=== PATIENT | male | born 1965 | race Caucasian/White ===

== ENCOUNTER 2017-07-22 00:29 | Emergency (ER) | payer SELFPAY ==
[2017-07-22 00:34] VITALS: PULSE 77; RESP 18
--- NOTE | 2017-07-22 00:48 | CPEKG ---
Heart Rate: 70 RR Interval: 857 P-R Interval: 212 QRSD Interval: 108 QT Interval: 400 QTC Interval: 432 P [place]: 36 QRS [place]: 8 T Wave [place]: 37 EKG Severity - ABNORMAL ECG - EKG Impression: SINUS RHYTHM EKG Impression: FIRST DEGREE AV BLOCK Electronically Signed By: Humera Singh 22-Jul-2017 06:30:30
[2017-07-22] MEDS ORDERED: ONDANSETRON 4 MG/2 ML VIAL IVP ONE (00:56)
[2017-07-22] MEDS ORDERED: NS 1,000 ML IV ONE (01:11)
[2017-07-22] MEDS ORDERED: KETOROLAC 30 MG/1 ML SDV IVP ONE (01:11)
[2017-07-22 01:28] LABS: % IMMATURE GRANULYOCYTES 0.2 % (0.0-1.1); ABSOLUTE IMMATURE GRANULOCYTES 0.02 10^3/uL (0.00-0.10); ADD DIFF? NO; ADD MORPH? NO; ADD SCAN? NO; ATYPICAL LYMPHOCYTE FLAG 0 (0-99); FRAGMENT RBC FLAG 0 (0-99); HEMATOCRIT 39.4 % (40.0-51.0); HEMOGLOBIN 13.2 g/dL (13.7-17.5); LEFT SHIFT FLG 0 (0-99); LIPEMIA HEMOLYSIS FLAG 80 (0-99); MEAN CELL HEMOGLOBIN 30.3 pg (27.9-34.1); MEAN CELL HEMOGLOBIN CONCENTR. 33.5 g/dL (32.4-36.7); MEAN CELL VOLUME 90.4 fL (81.5-99.8); MEAN PLATELET VOLUME 9.7 fL (8.7-11.7); PLATELET CLUMPS FLAG 0 (0-99); PLATELET COUNT 286 10^3/uL (150-400); RED BLOOD CELL COUNT 4.36 10^6/uL (4.40-6.38); RED CELL DISTRIBUTION WIDTH 13.3 % (11.5-15.2)
--- NOTE | 2017-07-22 02:37 | EDPHY ---
H & P Stated Complaint: LIGHTHEADNESS, DYSPNEA , CONFUSION Time Seen by Provider: 07/22/17 01:03 HPI/ROS: HPI The patient presents with headache, nausea, generalized malaise which have been present for the last 1 day. 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 As he noticed today when he arrived to [place] from [place] that he had mild nausea, headache which is throbbing and diffuse, feels fatigued and very slightly disoriented. He denies any head trauma. He wonders if he has altitude sickness. He denies any sick contacts. He does not have any changes in his vision. He has a history of headaches and this feels similar.. He says he has been able to drink fluids but not as much as he would like. REVIEW OF SYSTEMS Constitutional: No fever, no chills. Eyes: No discharge. ENT: No sore throat. Cardiovascular: No chest pain, no palpitations. Respiratory: No cough, no shortness of breath. Gastrointestinal: No abdominal pain, no vomiting. Genitourinary: No hematuria. Musculoskeletal: No back pain. Skin: No rashes. Neurological: Positive for headache. PMHx: Atrial fibrillation on diltiazem Soc Hx: Denies any alcohol or drug use PHYSICAL General Appearance: Alert, no distress Eyes: Pupils equal and round no pallor or injection ENT, Mouth: Mucous membranes dry Respiratory: There are no retractions, lungs are clear to auscultation Cardiovascular: Regular rate and rhythm Gastrointestinal: Abdomen is soft and non-tender, no masses, bowel sounds normal Neurological: A&O, moves all extremities Skin: Warm and dry, no rashes Musculoskeletal: Neck is supple non tender Extremities: symmetrical, full range of motion Psychiatric: Patient is oriented X 3, there is no agitation Source: Patient Exam Limitations: No limitations - Personal History Current Tetanus/Diphtheria Vaccine: Yes - Medical/Surgical History Hx Asthma: No Hx Chronic Respiratory Disease: No Hx Diabetes: No Hx Cardiac Disease: Yes Hx Renal Disease: No Hx Cirrhosis: No Hx Alcoholism: No Hx HIV/AIDS: No Hx Splenectomy or Spleen Trauma: No Other PMH: AFIB,. CHRONS DISEASE - Social History Smoking Status: Former smoker Constitutional: Initial Vital Signs Temperature (C) 36.9 C 07/22/17 00:31 Heart Rate 77 07/22/17 00:31 Respiratory Rate 18 07/22/17 00:31 Blood Pressure 148/91 H 07/22/17 00:31 O2 Sat (%) 95 07/22/17 00:31 O2 Delivery Mode Room Air Allergies/Adverse Reactions: No Known Allergies Allergy (Unverified 07/22/17 00:34) Home Medications: Medication Instructions Recorded Diltiazem 120 mg BID 07/22/17 Medical Decision Making - Diagnostics EKG Interpretation: EKG: Complete interpretation has been separately recorded in the [email or web address] archive. Summary impression: Normal sinus rhythm Differential Diagnosis: This is a 51-year-old healthy male with history of atrial fibrillation on diltiazem who presents with headache, nausea, generalized fatigue. On exam, he has no neurologic deficits and is generally well-appearing. His mucous membranes are dry. I suspect he could be dehydrated or have mild altitude sickness contributing to his symptoms. Differential diagnosis includes dehydration, electrolyte disturbance, altitude sickness, migraine headache, tension type headache. In the emergency department, patient received IV fluids. He felt much better. Labs were checked and did reveal mild hyponatremia which could be related to dehydration I suspect if he does not appear to be volume overloaded. He will be discharged home with instructions for ibuprofen as needed and plenty of fluids. I will give him Zofran as well for his nausea. - Data Points Laboratory Results: Laboratory Results 07/22/17 00:50 07/22/17 07/22/17 00:50 00:50 WBC 9.69 10^3/uL H 10^3/uL (3.80-9.50) RBC 4.36 10^6/uL L 10^6/uL (4.40-6.38) Hgb 13.2 g/dL L g/dL (13.7-17.5) Hct 39.4 % L % (40.0-51.0) MCV 90.4 fL fL (81.5-99.8) MCH 30.3 pg pg (27.9-34.1) MCHC 33.5 g/dL g/dL (32.4-36.7) RDW 13.3 % % (11.5-15.2) Plt Count 286 10^3/uL 10^3/uL (150-400) MPV 9.7 fL fL (8.7-11.7) Neut % (Auto) 74.2 % % (39.3-74.2) Lymph % (Auto) 17.8 % % (15.0-45.0) [place] % (Auto) 5.2 % % (4.5-13.0) Eos % (Auto) 1.4 % % (0.6-7.6) Baso % (Auto) 1.2 % % (0.3-1.7) Nucleat RBC Rel Count 0.0 % % (0.0-0.2) Absolute Neuts (auto) 7.19 10^3/uL H 10^3/uL (1.70-6.50) Absolute Lymphs (auto) 1.72 10^3/uL 10^3/uL (1.00-3.00) Absolute Monos (auto) 0.50 10^3/uL 10^3/uL (0.30-0.80) Absolute Eos (auto) 0.14 10^3/uL 10^3/uL (0.03-0.40) Absolute Basos (auto) 0.12 10^3/uL H 10^3/uL (0.02-0.10) Absolute Nucleated RBC 0.00 10^3/uL 10^3/uL (0-0.01) Immature Gran % 0.2 % % (0.0-1.1) Immature Gran # 0.02 10^3/uL 10^3/uL (0.00-0.10) Sodium Pending Potassium Pending Chloride Pending Carbon Dioxide Pending Anion Gap Pending BUN Pending Creatinine Pending Estimated GFR Pending Glucose Pending Calcium Pending Medications Given: Discontinued Medications Sodium Chloride (Ns) 1,000 mls @ 0 mls/hr IV EDNOW ONE; Wide Open PRN Reason: Protocol Stop: 07/22/17 01:12 Last Admin: 07/22/17 02:18 Dose: 1,000 mls Ketorolac Tromethamine (Toradol) 15 mg IVP EDNOW ONE Stop: 07/22/17 01:12 Last Admin: 07/22/17 02:38 Dose: 15 mg Ondansetron HCl (Zofran) 4 mg IVP EDNOW ONE Stop: 07/22/17 00:57 Last Admin: 07/22/17 00:59 Dose: 4 mg Departure - Departure Disposition: Home, Routine, Self-Care Clinical Impression: Lightheaded, Nausea, Hyponatremia Condition: Good Instructions: Mountain Sickness (ED) Additional Instructions: Please make sure to drink plenty of fluids. You can take ibuprofen 400 mg every 6 hours as needed for headache.
[2017-07-22 03:06] LABS: ANION GAP 9 mEq/L (8-16); CALCIUM 8.9 mg/dL (8.5-10.4); CARBON DIOXIDE 25 mEq/l (22-31); CHLORIDE 95 mEq/L (97-110); CREATININE 0.7 mg/dL (0.7-1.3); GLOMERULAR FILTRATION RATE > 60; GLUCOSE 96 mg/dL (70-100); POTASSIUM 3.9 mEq/L (3.5-5.2); SODIUM 129 mEq/L (134-144)
[2017-07-22] MEDS ORDERED: ONDANSETRON 4MG PREPACK#2 BTL TAKEHOME ONE (03:08)
[2017-07-22] MEDS ORDERED: IBUPROFEN 600 MG TAB PO ONE (03:55)
[2017-07-22 04:20] VITALS: BP 124/87; TEMP 97.9; O2SAT 94
== END 2017-07-22 04:18 | disposition home or self-care (01) ==
DX: E87.1 Hypo-osmolality and hyponatremia (principal); E86.9 Volume depletion, unspecified; Z87.891 Personal history of nicotine dependence
CPT/HCPCS: 96374; J1885; J2405